=== PATIENT | female | born 1965 | race Caucasian/White ===

== ENCOUNTER → 2018-09-17 | Outpatient (CLI) | payer OTHER ==
[~2018-09-17] MED LIST: KET10 PO; PER PO
--- NOTE | 2018-09-17 11:20 | RADIOLOGY IMAGING REPORT ---
FACILITY: [facility] PATIENT NAME: Martine Gatica : 1965 MR: [id number] V: [id number] EXAM DATE: ORDERING PHYSICIAN: TOSHIA MONGE TECHNOLOGIST: Location: [facility] Patient: Martine Gatica : 1965 Visit/Account:[id number] Date of Sevice: 09/17/2018 VENOUS LOWER EXT RT HISTORY: 2 weeks right posterior knee pain, postoperative right knee. Concern for deep venous throm bus. COMPARISON: None. FINDINGS: Grayscale, duplex and color Doppler interrogation of the right lower extremity deep veins from common femoral vein to proximal calf was completed. Compression was performed where it was possible. The le ft common femoral vein was evaluated using similar technique. Common femoral vein - Negative. Femoral vein - Negative. Deep femoral vein - Negative. Popliteal vein - Negative. Visualized deep calf veins - Negative. Popliteal fossa: Negative. Contralateral (left) common femoral vein: Negative. IMPRESSION: No evidence of acute deep venous thrombosis in the visualized veins of the right lower extremity. Report Dictated By: Eduar Caban at 09/17/2018 11:12 AM Report E-Signed By: Eduar Caban at 09/17/2018 11:13 AM WSN:[id number]
== END ==
LOC: US 09:45
PROVIDERS: ATTEND Orthopaedic Surgery
DX: M79.662 Pain in left lower leg (principal)

== ENCOUNTER 2018-10-10 18:16 | Emergency (ER) | payer OTHER ==
--- NOTE | 2018-10-10 18:31 | ER Report ---
History and Physical Time Seen By MD: 18:31 Hx. of Stated Complaint: Fall with laceration to right arm HPI/ROS CHIEF COMPLAINT: Fall with laceration to right arm HISTORY OF PRESENT ILLNESS: 53 year old female presents to ED after fall going up her stairs at home. She was walking up the stairs, holding onto the hand rail, when it came off of the wall and the metal bracket that attached the rail to the wall scraped her posterior aspect of right upper arm. She has had recent meniscus repair to her right knee limiting her ROM. Patient reports that her looked at the injury and knowing she needed stitches, brought her to the ER. Patient reports mild pain to the right arm. She reports no injury to her right knee. Reports she felt like she may have slightly pulled her hamstring behind her left knee, but reports that it is very mild discomfort. REVIEW OF SYSTEMS: Constitutional: Denies fevers, chills. Respiratory: No cough, no dyspnea. Cardiovascular: No chest pain, no palpitations. Gastrointestinal: No vomiting, no abdominal pain. Musculoskeletal: No back pain. Integumentary: Laceration to right upper arm. Reports mild pain to that area. Allergies: Coded Allergies: amoxicillin (Verified Allergy, Intermediate, HIVES, SOB, Swelling, 10/10/18) clavulanic acid (Verified Allergy, Intermediate, HIVES, SOB, Swelling, 10/10/18) Home Meds Reported Medications Oxycodone/Acetaminophen (OXYCODONE/ACETAMINOPHEN 5MG/325 MG) 5 Mg/325 Mg Tab, 1 - 2 TAB PO Q4H PRN, #30 0 Refills 05/15/10 Ketorolac Tromethamine (Toradol) 10 Mg Tab, 10 MG PO QID, #16 0 Refills 05/15/10 [None] No Conflict Check, 0 Refills 05/14/10 Past Medical/Surgical History No significant past medical hx. Past surgical hx significant for cholecytectomy 2010, back surgery 2002, right meniscus repair 08/2018 Reviewed Nurses Notes: Yes Hx Smoking: Yes (1/2 PPD SMOKER) Hx Substance Use Disorder: No Hx Alcohol Use: No Constitutional Vital Sign - Last 24 Hours 10/10/18 10/10/18 10/10/18 10/10/18 18:27 18:29 18:30 18:41 Temp 98.3 Pulse 95 Resp 16 B/P (MAP) 169/104 (125) 151/102 151/102 (118) 154/91 (112) Pulse Ox 91 O2 Delivery Room Air 10/10/18 10/10/18 18:46 19:16 Pulse 87 81 Pulse Ox 92 90 Physical Exam General Appearance: The patient is alert, has no immediate need for airway protection and no current signs of toxicity. Eyes: Pupils equal and round no injection. Respiratory: Chest is non tender, lungs are clear to auscultation. Cardiac: regular rate and rhythm Gastrointestinal: Abdomen is soft and non tender, no masses, bowel sounds normal. Musculoskeletal: Neck: Neck is supple and non tender. Skin: 1.5cm laceration to right posterior upper arm. DIFFERENTIAL DIAGNOSIS: After history and physical exam differential diagnosis was considered for laceration to right arm, possible strain to left hamstring. Medical Decision Making ED Course/Re-evaluation ED Course Procedure: Laceration repair. Verbal consent was obtained from the patient. The 1.5cm laceration on the posterior aspect of right upper arm was anesthetized in the usual fashion. The wound was scrubbed, draped and explored to its base with a gloved finger. There were no deep structures involved. No tendon injury was identified. The wound was repaired with 5-0 proline. The wound repair was simple. The procedure was performed by Kimberley Simms, [employer] student under my direct supervision. Patient is in agreement with no x-ray of her left knee. If the pain persists, she will followup with her orthopedic who did her recent surgery on the other knee. Decision to Disposition Date: Oct 10, 2018 Decision to Disposition Time: 19:44 Depart Departure Latest Vital Signs Vital Signs Date Time Temp Pulse Resp B/P (MAP) Pulse Ox O2 Delivery O2 Flow Rate FiO2 10/10/18 19:16 81 90 10/10/18 18:41 154/91 (112) 10/10/18 18:29 98.3 16 Room Air Impression: Primary Impression: Laceration Additional Impression: Knee sprain Condition: Improved Disposition: HOME OR SELF-CARE Referrals: JERI KHAN (PCP) Patient Instructions: Laceration (ED) Additional Instructions: Keep wound dry for 48 hours. Follow up with your primary care provider in the next 7-10 days to have sutures removed. Monitor for signs of infection; redness, swelling, heat, discharge, increasing pain or red streaking. Take Tylenol or Ibuprofen as needed for pain. Return to the ER with any concerns. You may change dressing as needed. Ice the knee 2-3 times a day. Limit activity by pain. Follow up with your orthopedist if pain persists. Problem Qualifiers Additional Impression: Knee sprain Encounter type: initial encounter Involved ligament of knee: unspecified ligament Laterality: left Qualified Codes: S83.92XA - Sprain of unspecified site of left knee, initial encounter SUSANNAH SAMANO Oct 10, 2018 18:31
[2018-10-10 18:41] VITALS: BP 154/91
[2018-10-10] MEDS ORDERED: DIPHTH/TETANUS/ACEL. PERTUSSIS IM ONLY ONE (18:50)
== END 2018-10-10 20:03 | disposition home or self-care (01) ==
LOC: ER 18:42
DX: S41.111A Laceration without foreign body of right upper arm, initial encounter (principal); S83.92XA Sprain of unspecified site of left knee, initial encounter; W10.9XXA Fall (on) (from) unspecified stairs and steps, initial encounter; Y92.018 Other place in single-family (private) house as the place of occurrence of the external cause; F17.200 Nicotine dependence, unspecified, uncomplicated; Z98.890 Other specified postprocedural states; Z23 Encounter for immunization
CPT/HCPCS: 90471; 90715; 99283